=== PATIENT | female | born 1960 | race Caucasian/White ===

== ENCOUNTER 2022-10-17 07:19 | Day surgery (SDC) | payer OTHER ==
[2022-10-13 10:14] VITALS: BP 123/62
[2022-10-13 15:40] LABS: BASOPHILS % (AUTO) 0.7 % (0.0-5.0); EOSINOPHILS % (AUTO) 0.6 % (0.0-8.0); HEMATOCRIT 44.7 % (36-48); LYMPHOCYTES % (AUTO) 32.7 % (21.0-51.0); MEAN CORPUSCULAR HEMOGLOBIN 29.4 pg (27.0-33.0); MEAN CORPUSCULAR HGB CONC 32.7 g/dL (32.0-36.0); MEAN CORPUSCULAR VOLUME 90.1 fL (79-99); MONOCYTES % (AUTO) 8.7 % (3.0-13.0); NEUTROPHILS % (AUTO) 57.1 % (40.0-77.0); PLATELET COUNT (AUTO) 239 K/uL (130-400); RED BLOOD CELL COUNT(AUTO) 4.96 MIL/uL (4.00-5.50); RED CELL DISTRIBUTION WIDTH 12.7 % (11.0-15.5); WHITE BLOOD COUNT (AUTO) 8.1 K/uL (4.8-10.8)
[~2022-10-17] VITALS: Ht 172.7 cm; Wt 75.7 kg
[2022-10-17] VITALS (13 sets, daily range): BP systolic 113–122; BP diastolic 66–78
[~2022-10-17 07:19] MED LIST: ASPI-1443 PO; ATOR20TA65 PO; CALDOLOR 800MG+NS 250ML 250 ML IV SCH; CEFAZOLIN SODIUM 2 GM VIAL IVPB SCH; LACTATED RINGERS 1000ML 1,000 ML IV SCH; LOSA25TA41 PO; SOTA80TA PO
[2022-10-17] MEDS ORDERED: MIDAZOLAM HCL 1 MG/ML 2ML VIAL ONE (08:56)
[2022-10-17] MEDS ORDERED: LIDOCAINE HCL-MPF 2% 5ML VIAL ONE (08:56)
[2022-10-17] MEDS ORDERED: DEXAMETHASONE SOD PHOSPHATE 4 MG/ML 1ML VIAL ONE (08:56)
[2022-10-17] MEDS ORDERED: PROPOFOL 10 MG/ML 20ML VIAL IV ONE (08:57)
[2022-10-17] MEDS ORDERED: ONDANSETRON 4MG INJ ONE (08:57)
[2022-10-17] MEDS ORDERED: KETOROLAC 30MG VIAL (30MG/ML) ONE (08:58)
[2022-10-17] MEDS ORDERED: FENTANYL CITRATE PF 50 MCG/1 ML 2ML VIAL ONE (08:58)
[2022-10-17] MEDS ORDERED: CEFAZOLIN SODIUM 2 GM VIAL IVPB ONE (09:13)
== END 2022-10-17 11:30 | disposition home or self-care (01) ==
LOC: DAH 07:19
PROVIDERS: ATTEND Obstetrics & Gynecology
DX: N95.0 Postmenopausal bleeding (principal); Z20.822 Contact with and (suspected) exposure to COVID-19; R93.89 Abnormal findings on diagnostic imaging of other specified body structures; N84.0 Polyp of corpus uteri; I10 Essential (primary) hypertension; E78.5 Hyperlipidemia, unspecified; Z98.891 History of uterine scar from previous surgery; Z95.0 Presence of cardiac pacemaker; Z79.82 Long term (current) use of aspirin; Z79.899 Other long term (current) drug therapy; Z98.890 Other specified postprocedural states
CPT/HCPCS: 85025; 86850 ×2; 86900 ×2; 86901 ×2; 87426; 36415 ×2; 58563; J1100; A4663; J7030; A4351; A4355; J7120; J3010; J2250; J2704; J2405; J1885; J3490; J1741; J0690 ×2; A4649; A4215; A4223; A4222; A4221